=== PATIENT | male | born 1955 ===

== ENCOUNTER 2017-01-15 14:36 | Emergency (ER) | payer MEDICARE ==
[2017-01-15 14:36] VITALS: BMI 27.3
[2017-01-15 14:51] VITALS: RESP 20
[2017-01-15] MEDS ORDERED: Lidocaine 5% Patch TD STA (16:59)
[2017-01-15] MEDS ORDERED: Lidocaine 5% Patch TD ONE (17:11)
--- NOTE | 2017-01-15 17:16 | C.PDOC ---
History Of Present Illness 61 y/o male c/o 6 months of right buttock pain that radiates to right foot, with no injury. no saddle anesthesia, no numbness or tingling, no bladder or bowel dysfunction. Time Seen by Provider: 01/15/17 16:10 Chief Complaint (Nursing): Lower Extremity Problem/Injury History Per: Patient History/Exam Limitations: no limitations Onset/Duration Of Symptoms: Days (6 months), Persistent Current Symptoms Are (Timing): Still Present Severity: Moderate Past Medical History Reviewed: Historical Data, Nursing Documentation, Vital Signs Vital Signs: Last Vital Signs Temp 97.9 F 01/15/17 17:41 Pulse 48 L 01/15/17 17:41 Resp 20 01/15/17 17:41 BP 120/72 01/15/17 17:41 Pulse Ox 100 01/15/17 17:41 - Medical History PMH: Denies: Chronic Kidney Disease - [facility] Procedures URETERAL CATHETERIZATION (06/04/14) Family History: States: Unknown Family Hx - Social History Hx Tobacco Use: No Hx Alcohol Use: Yes Hx Substance Use: No Review Of Systems Constitutional: Negative for: Fever, Chills Gastrointestinal: Negative for: Abdominal Pain Genitourinary: Negative for: Incontinence Musculoskeletal: Positive for: Back Pain (right), Leg Pain (right) Skin: Negative for: Rash Neurological: Negative for: Weakness, Numbness Physical Exam - Physical Exam Appears: Non-toxic, No Acute Distress Skin: Warm, Dry Head: Atraumatic, Normacephalic Neck: Normal ROM, No Midline Cervical Tenderness Back: No Vertebral Tenderness, Other (right sciatic notch tender) Extremity: Normal ROM, No Pedal Edema, No Calf Tenderness Pulses: Left Dorsalis Pedis: Normal, Right Dorsalis Pedis: Normal Neurological/Psych: Oriented x3, Normal Speech, Normal Cognition, Normal Motor, Normal Sensation ED Course And Treatment O2 Sat by Pulse Oximetry: 99 Medical Decision Making Medical Decision Making: pt with 6 months of pain from lower back that radiates to foot with no neuro deficits; will d/c with muscle relaxant, naproxen, lidodern. p/u pmd., recommend physical therapy. Disposition Counseled Patient/Family Regarding: Diagnosis, Need For Followup, Rx Given - Disposition Referrals: Neil Jurado MD [Staff Provider] - Disposition: HOME/ ROUTINE Disposition Time: 17:21 Condition: STABLE Additional Instructions: Follow up with Dr Jurado. recommend physcial therapy. Avoid heavy lifting. Take mediczation as prescribed. No driving or operating machinery when using muscle relaxant. Return to ER for any worse symptoms. Prescriptions: Cyclobenzaprine [Flexeril] 5 mg PO TID #9 tab Lidocaine 5% [Lidoderm] 1 ea TOP DAILY #6 patch Naproxen [Naprosyn Tab] 375 mg PO BID #20 tab Instructions: Sciatica (ED) Forms: [facility] (Croatian), General Discharge Instructions - Clinical Impression Clinical Impression: Sciatica
[2017-01-15 17:42] VITALS: BP 120/72; PULSE 48; TEMP 97.9
[2017-01-17 11:37] VITALS: O2SAT 99
== END 2017-01-15 17:42 | disposition home or self-care (01) ==
LOC: C.ER 14:36
DX: M54.41 Lumbago with sciatica, right side (principal)
CPT/HCPCS: 96372; 99283; J1885